=== PATIENT | female | born 1960 | race Caucasian/White ===

== ENCOUNTER → 2016-12-20 | Outpatient (CLI) | payer OTHER ==
--- NOTE | 2016-12-23 10:02 | MM ---
Reason for exam: screening (asymptomatic). Last mammogram was performed 1 year and 6 months ago. History: Family history of breast cancer in maternal grandmother. Benign core biopsy of the left breast, 2002. Physical Findings: A clinical breast exam by your physician is recommended on an annual basis and results should be correlated with mammographic findings. MG 3D Screening Mammo W/Cad Bilateral CC and MLO view(s) were taken. Prior study comparison: June 29, 2015, bilateral MG screening mammo w CAD. April 02, 2011, [facility] DIGITAL RIGHT MAMMOGRAM w/CAD. Finding: There are typically benign round calcifications. There is no discrete abnormality. No significant changes in finding since June 29, 2015 and April 02, 2011. ASSESSMENT: Benign, BI-RAD 2 RECOMMENDATION: Routine screening mammogram of both breasts in 1 year. Manage patient on a clinical basis.
== END | disposition home or self-care (01) ==
LOC: RADMAMWWP 07:03
PROVIDERS: ATTEND Internal Medicine
DX: Z12.31 Encounter for screening mammogram for malignant neoplasm of breast (principal)
CPT/HCPCS: 77063; G0202

== ENCOUNTER 2017-01-06 10:30 | Observation (INO) | payer OTHER, SELFPAY ==
[2017-01-06] MEDS ORDERED: MORPHINE SULFATE 2 MG/ML SYRINGE IVP STA (11:04)
[2017-01-06] MEDS ORDERED: ASPIRIN 81 MG CHEW PO STA (11:04)
[2017-01-06] MEDS ORDERED: SODIUM CHLORIDE 0.9% 1,000 ML IV STA (11:04)
[2017-01-06] MEDS ORDERED: ONDANSETRON 4 MG/2 ML VIAL IVP STA (11:04)
[2017-01-06] MEDS ORDERED: NITROGLYCERIN OINT 1 INCH/GM PACKET TOPICAL STA (11:04)
[2017-01-06 11:35] LABS: Partial Thromboplastin Time 24.4 sec (22.0-30.0); Prothrombin Time 10.1 sec (9.0-12.0)
[2017-01-06 11:37] LABS: ALT 49 U/L (9-52); AST 30 U/L (14-36); Alkaline Phosphatase 96 U/L (38-126); Anion Gap 12 mmol/L; Blood Urea Nitrogen 14 mg/dL (7-17); Calcium 9.4 mg/dL (8.4-10.2); Carbon Dioxide 26 mmol/L (22-30); Chloride 106 mmol/L (98-107); Glucose 91 mg/dL (74-99); Magnesium 2.1 mg/dL (1.6-2.3); Non-African American GFR(MDRD) >60 (>60 ml/min/1.73 sqM); Sodium 144 mmol/L (137-145); Total Bilirubin 0.9 mg/dL (0.2-1.3); Total Protein 7.7 g/dL (6.3-8.2)
[2017-01-06 11:39] LABS: Basophils % (A) 0 %; CH 30.9; CHCM 34.5; Eosinophils # (A) 0.1 k/uL (0-0.7); Eosinophils % (A) 1 %; HCT 44.8 % (34.0-46.0); HDW 2.61; Luc # (Auto) 0.07; Luc % (Auto) 1; Lymphocytes # (A) 1.6 k/uL (1.0-4.8); Lymphocytes % (A) 23 %; MCHC 33.4 g/dL (31.0-37.0); MCV 89.8 fL (80.0-100.0); Mean Platelet Volume 7.1; Monocytes # (A) 0.2 k/uL (0-1.0); Monocytes % (A) 3 %; Neutrophils % (A) 71 %; RBC 4.99 m/uL (3.80-5.40); RDW 13.5 % (11.5-15.5); WBC (Perox) 7.12
--- NOTE | 2017-01-06 11:43 | XR ---
EXAMINATION TYPE: XR chest 2V DATE OF EXAM: 01/06/2017 11:30 AM HISTORY: Chest pain. REFERENCE: Previous study dated 04/18/2011. FINDINGS: The lungs are clear. Pleural spaces are clear. Heart size is normal. IMPRESSION: NORMAL CHEST.
[2017-01-06 11:50] LABS: Creatine Kinase 53 U/L (30-135)
[2017-01-06 12:03] LABS: Creatine Kinase MB 0.3 ng/mL (0.0-2.4); Troponin I <0.012 ng/mL (0.000-0.034)
--- NOTE | 2017-01-06 13:17 | ED ---
Chest Pain HPI - General Chief Complaint: Chest Pain Stated Complaint: chest pain Time Seen by Provider: 01/06/17 10:44 Source: patient Mode of arrival: ambulatory Limitations: no limitations - History of Present Illness Initial Comments: Left-sided chest pain off and on for last 10 days and sometimes he has his pain addressed at some time with the exception she had the same kind of pain in the past but this time it's more severe and more frequent time she is short-winded pain right now is a 5-6/10 deep breaths do not make pain worse she denies any tobacco use no alcohol use, her dad has a history of diabetes and heart disease mom's past medical history is unremarkable he denies any headaches or migraine has a chest pain off and on for last few days abdominal pain no frequency urgency dysuria no sinus symptoms of TIA or CVA - Related Data Home Medications Medication Instructions Recorded Confirmed Ascorbic Acid [Vitamin C] 500 mg PO DAILY 01/06/17 01/06/17 Aspirin 81 mg PO DAILY 01/06/17 01/06/17 Calcium Carbonate [Calcium] 600 mg PO DAILY 01/06/17 01/06/17 Magnesium 200 mg PO DAILY 01/06/17 01/06/17 [place]-3 Fatty Acids/Fish Oil [Fish 1 cap PO DAILY 01/06/17 01/06/17 Oil 1,000 mg Softgel] Zinc 50 mg PO DAILY 01/06/17 01/06/17 Allergies Allergy/AdvReac Type Severity Reaction Status Date / Time No Known Allergies Allergy Verified 01/06/17 11:11 Review of Systems ROS Statement: Those systems with pertinent positive or pertinent negative responses have been documented in the HPI. ROS Other: All systems not noted in ROS Statement are negative. EKG Findings - EKG Comments: EKG Findings:: Him EKG is normal sinus rhythm ventricular rate is 61 MT interval is 150 QRS duration is 78 QT/QTc is 418/420 noticed some T-wave inversion in leads free apart from that no ST elevation or ST depression noticed and the EKG was compared with the old EKG done on 06/07/2011 there were no changes Past Medical History Past Medical History: No Reported History History of Any Multi-Drug Resistant Organisms: None Reported Past Surgical History: Hysterectomy Additional Past Surgical History / Comment(s): D & C Past Psychological History: No Psychological Hx Reported Smoking Status: Never smoker Past Alcohol Use History: None Reported Past Drug Use History: None Reported General Exam - General Exam Comments Initial Comments: General: The patient is awake and alert, in no distress, and does not appear acutely ill. Skin: Skin is warm and dry and no rashes or lesions are noted. Eye: Pupils are equal, round and reactive to light, extra-ocular movements are intact; there is normal conjunctiva bilaterally. Ears, nose, mouth and throat: There are moist mucous membranes and no oral lesions. Neck: The neck is supple, there is no tenderness or JVD. Cardiovascular: There is a regular rate and rhythm. No murmur, rub or gallop is appreciated. Respiratory: To auscultation bilateral, no wheezing no rhonchi no distress respiratory alvarez noticed Gastrointestinal: Soft, non-distended, non-tender abdomen without masses or organomegaly noted. There is no rebound or guarding present. Bowel sounds are unremarkable. Back: There is no tenderness to palpation in the midline. There is no obvious deformity. Musculoskeletal: Normal ROM, no tenderness, There is no pedal edema. There is no calf tenderness or swelling. No cords were appreciated. Neurological: CN II-XII intact, Cranial nerves III through XII are intact. There are no obvious motor or sensory deficits. Coordination appears grossly intact. Speech is normal. Psychiatric: Cooperative, appropriate mood & affect, normal judgment. Limitations: no limitations Course Vital Signs 01/06/17 01/06/17 01/06/17 10:36 11:19 12:00 Temperature 97.9 F Pulse Rate 61 61 63 Respiratory 18 20 Rate Blood Pressure 130/68 140/82 131/92 O2 Sat by Pulse 96 99 99 Oximetry Critical Care Time Total Critical Care Time: 35 Critical Care Time: She was monitored in the ER for couple of hours at 1330 she still has a pain is 3/10 at this point we can give her some morphine nitro en route and heparinize her she be admitted under Dr. Fish and cardiology be consulted at this point we hadn't had any d-dimer go ahead and at the d-dimer Disposition Clinical Impression: Chest pain Disposition: ADMITTED IP TO THIS HOSP Condition: Good
[2017-01-06] MEDS ORDERED: HEPARIN SODIUM,PORCINE 5,000 UNIT/ML 1 ML VIAL IV ONE (13:58)
[2017-01-06] MEDS ORDERED: NITROGLYCERIN SL TABS 0.4 MG TAB SUBLINGUAL PRN (13:58)
[2017-01-06] MEDS ORDERED: HEPARIN SODIUM,PORCINE/D5W PMX 25,000 UNIT in DEXTROSE/WATER 1 500ML.BAG IV SCH (14:00)
[2017-01-06 16:15] VITALS: BMI 33.1
[2017-01-06 17:40] LABS: Creatine Kinase 44 U/L (30-135)
[2017-01-06 17:53] LABS: Creatine Kinase MB 0.3 ng/mL (0.0-2.4); Troponin I <0.012 ng/mL (0.000-0.034)
[2017-01-06] MEDS ORDERED: ACETAMINOPHEN TAB 325 MG TAB PO PRN (20:05)
[2017-01-06 22:25] LABS: Creatine Kinase 44 U/L (30-135)
[2017-01-06 22:38] LABS: Creatine Kinase MB 0.3 ng/mL (0.0-2.4); Troponin I <0.012 ng/mL (0.000-0.034)
[2017-01-07 06:37] LABS: Cholesterol 166 mg/dL (<200); HDL Cholesterol 32 mg/dL (40-60); Triglycerides 134 mg/dL (<150)
[2017-01-07] MEDS ORDERED: ZINC GLUCONATE 50 MG TAB PO SCH (09:00)
[2017-01-07] MEDS ORDERED: CALCIUM CARBONATE 500 MG CHEWABLE PO SCH (09:00)
[2017-01-07] MEDS ORDERED: NON-FORMULARY DRUG (Omega-3 Fatty Acids/Fish Oil [Fish Oil 1,000 Mg Softgel] 1 CAP) PO SCH (09:00)
[2017-01-07] MEDS ORDERED: ASPIRIN 325 MG TAB PO SCH (09:00)
[2017-01-07] MEDS ORDERED: ASCORBIC ACID 500 MG TAB PO SCH (09:00)
[2017-01-07] MEDS ORDERED: MAGNESIUM OXIDE 400 MG TAB PO SCH (09:00)
--- NOTE | 2017-01-07 10:59 | ECHOF ---
Referral Reason:cp MEASUREMENTS -------- HEIGHT: 154.9 cm WEIGHT: 79.4 kg BP: 98/56 RVIDd: 3.0 cm (< 3.3) IVSd: 1.2 cm (0.6 - 1.1) LVIDd: 3.7 cm (3.9 - 5.3) LVPWd: 1.1 cm (0.6 - 1.1) IVSs: 1.4 cm LVIDs: 2.6 cm LVPWs: 1.5 cm LA Diam: 3.4 cm (2.7 - 3.8) Ao Diam: 3.1 cm (2.0 - 3.7) AV Cusp: 2.0 cm (1.5 - 2.6) MV EXCURSION: 11.540 mm (> 18.000) MV EF SLOPE: 80 mm/s (70 - 150) EPSS: 0.3 cm MV E [place]: 0.95 m/s MV DecT: 230 ms MV A [place]: 0.85 m/s MV E/A Ratio: 1.12 RAP: 5.00 mmHg RVSP: 30.43 mmHg FINDINGS -------- Sinus rhythm. This was a technically good study. The left ventricular size is normal. There is borderline concentric left ventricular hypertrophy. Overall left ventricular systolic function is normal with, an EF between 60 - 65 %. The right ventricle is normal in size and function. The left atrium is normal in size. The right atrium is normal in size. Aortic valve is trileaflet and is mildly thickened. Normal appearing mitral valve. No mitral regurgitation. Mild tricuspid regurgitation present. Right ventricular systolic pressure is normal at < 35 mmHg. The pulmonic valve is normal. There is no pulmonic regurgitation present. The aortic root size is normal. Normal inferior vena cava with normal inspiratory collapse consistent with estimated right atrial pressure of 5 mmHg. There is no pericardial effusion. CONCLUSIONS -------- 1. Sinus rhythm. 2. Normal appearing mitral valve. 3. Mild tricuspid regurgitation present. 4. Right ventricular systolic pressure is normal at < 35 mmHg. 5. The pulmonic valve is normal. 6. The aortic root size is normal. 7. There is no pericardial effusion. 8. This was a technically good study. 9. The left ventricular size is normal. 10. There is borderline concentric left ventricular hypertrophy. 11. Overall left ventricular systolic function is normal with, an EF between 60 - 65 %. 12. The right ventricle is normal in size and function. 13. The left atrium is normal in size. 14. The right atrium is normal in size. 15. Aortic valve is trileaflet and is mildly thickened. MEDICAL RADIATION THERAPIST: Damaris Andino RDCS
--- NOTE | 2017-01-07 11:08 | EST ---
DATE OF SERVICE: 01/07/2017 AGE: 56Y SEX: F HT: 61" WT: 175 lbs. Protocol Evin: X Other: Cardiolite Stage: III Dur. of Exercise: 7 minutes *Heart Rate Blood Pressure *Rest: 79 Rest: 124/73 * *Max. Achieved: 155 Maximum BP: 208/101 85% PMHR: 139 100% PMHR: 163 *METS: 8.5 INDICATION OF THE STUDY: Chest pain. MEDICATIONS: Vitamin C, aspirin, Zinc, fish oil, magnesium, calcium. STRESS DATA: Pretesting physical examination showed heart rate of 79, pressure is 124/73 mmHg. Baseline EKG showed sinus rhythm. The patient exercised on the treadmill according to Evin protocol for a total 7 minutes and achieved 8.5 METs. Max heart rate was 155, which is about 111% of maximum predicted heart rate. Maximum blood pressure 208/101 mmHg. Clinically, the patient reported no symptoms of chest pain or discomfort during the testing or in the recovery time. The EKG did not show any significant ST or T wave abnormalities consistent with ischemia. CONCLUSION: 1. Good exercise capacity. 2. Normal EKG in response to exercise. 3. Please follow up on the Cardiolite portion on a separate report from the radiology department.
--- NOTE | 2017-01-07 11:18 | NM ---
EXAMINATION TYPE: NM stress cardiolite complete DATE OF EXAM: 01/07/2017 11:08 AM COMPARISON: NONE HISTORY: Chest pain TECHNIQUE: After the intravenous administration of 11 mCi Tc 99m Sestamibi - Rest images obtained 62 minutes post injection. The patient exercised using a MARIAA protocol and 1 minute prior to peak ex ercise was injected with 27.5 mCi Tc 99m Sestamibi - Stress images obtained 20 minutes post injection . FINDINGS: Targeted heart rate was achieved during performance of the study. Review of stress and rest SPECT wander ges demonstrates no distinct perfusion abnormality. Gated analysis shows normal wall motion with an estimated left ventricular ejection fraction of 67 %. IMPRESSION: No scintigraphic evidence for reversible ischemia
[2017-01-07 12:11] VITALS: BP 135/74; PULSE 70; RESP 18; TEMP 97.8
--- NOTE | 2017-01-07 12:22 | CONS ---
DATE OF CONSULTATION: CHIEF COMPLAINT: Chest pain. Reny is a 56-year-old lady with no significant past medical history who presented to the hospital complaining of chest pain. She describes it as a precordial chest pressure with left arm discomfort. It came on as a tightness at rest and associated with diaphoresis, unrelated to exertion. There was no shortness of breath. It resolved spontaneously. EKG did not reveal ischemic changes. Three sets of cardiac enzymes this morning have been negative. There is no prior history of coronary artery disease. There is no prior history of revascularization. I reviewed patient's symptomatology, risk factors, EKG and talked to her about her treatment options including invasive angiography to rule out obstructive CAD and stress testing. Understanding all of the issues, she wishes to proceed with a stress test today. If this is normal, she will be discharged home. If this is abnormal, she will undergo cardiac catheterization. Past medical history is negative for hypertension, diabetes, dyslipidemia. MEDICATIONS: Zinc, fish oil, magnesium, ascorbic acid and aspirin. ALLERGIES: There are no known drug allergies. FAMILY HISTORY: Negative for premature coronary artery disease. SOCIAL HISTORY: Negative for smoking, EtOH abuse, or drug abuse. REVIEW OF SYSTEMS: HEENT: Unremarkable. CARDIAC: As described above. RESPIRATORY: Negative. GI: Negative. GENITOURINARY: Negative. ALLERGY/IMMUNOLOGY: Negative. SKIN: Negative. MUSCULOSKELETAL: Negative. ENDOCRINE: Negative. HEMATOLOGICAL: Negative. DERM: Negative. CONSTITUTIONAL: Negative. ONCOLOGICAL: Negative. The rest of the system review is not relevant. On exam, patient is comfortable at rest. Heart rate is 50 beats per minute. Blood pressure 98/50. Respiratory rate 18. There is no jugular venous distention. Carotid upstroke is normal. There is no bruit. Chest exam reveals good air entry bilaterally. Heart exam reveals first and second heart sounds. No gallop. No murmur, no rub. Abdomen is soft, nontender. Exam of the extremities did not reveal any edema. Peripheral pulses are felt. DESCRIPTIVE CATALOG LIBRARIAN exam did not reveal focal neurological deficits. Labs show that the hemoglobin is 15, platelet count is 233. Three sets of tropes are negative. Creatinine is normal. LDL is 107. ASSESSMENT: Unstable angina. PLAN: While patient's symptoms sound typical, EKG is normal. Cardiac enzymes are normal. She does not have any significant risk factors and as per her, request, we will schedule her for a stress test today. If the stress test is negative, she will be discharged home. If this is abnormal she will undergo cardiac catheterization.
--- NOTE | 2017-01-07 12:59 | P.HPIM ---
History of Present Illness H&P Date: 01/07/17 Chief Complaint: Chest pain This is a 56-year-old female with no significant past medical history who presented to the emergency room with worsening chest pain and tightness. Patient said that her pain was mostly tightness-like feeling in the middle of her chest. He was associated with diaphoresis. There was no radiation. There is unrelated to exertion. Patient never had any problems with her heart before. She is a nonsmoker. No significant family history of premature coronary artery disease. Patient was evaluated in the emergency room and 12 leads EKG showed no acute ischemic changes. She was placed on observation for further evaluation with cardiology consultation. Serial troponin were negative 3 sets. Patient underwent stress test that was negative with no evidence of reversible ischemia. She was cleared for discharge home. She will follow-up with me in the office as directed. Review of Systems Review of system: 14 points review of systems were obtained and were negative except to what were mentioned in the HPI. Past Medical History Past Medical History: No Reported History Additional Past Medical History / Comment(s): PALPITATIONS History of Any Multi-Drug Resistant Organisms: None Reported Past Surgical History: Hernia Repair, Hysterectomy Additional Past Surgical History / Comment(s): D & C, RT BREAST BX -NEG, UMB HERNIA Past Anesthesia/Blood Transfusion Reactions: Previous Problems w/ Anesthesia Additional Past Anesthesia/Blood Transfusion Reaction / Comment(s): DIFFICULTY WAKING Past Psychological History: No Psychological Hx Reported Smoking Status: Never smoker Past Alcohol Use History: None Reported Past Drug Use History: None Reported - Past Family History Mother Family Medical History: Dementia Father Family Medical History: Congestive Heart Failure (CHF), Diabetes Mellitus Medications and Allergies Home Medications Medication Instructions Recorded Confirmed Type Ascorbic Acid [Vitamin C] 500 mg PO DAILY 01/06/17 01/06/17 History Aspirin 81 mg PO DAILY 01/06/17 01/06/17 History Calcium Carbonate [Calcium] 600 mg PO DAILY 01/06/17 01/06/17 History Magnesium 200 mg PO DAILY 01/06/17 01/06/17 History [place]-3 Fatty Acids/Fish Oil [Fish 1 cap PO DAILY 01/06/17 01/06/17 History Oil 1,000 mg Softgel] Zinc 50 mg PO DAILY 01/06/17 01/06/17 History Allergies Allergy/AdvReac Type Severity Reaction Status Date / Time No Known Allergies Allergy Verified 01/06/17 11:11 Physical Exam Vitals: Vital Signs Temp Pulse Pulse Resp BP BP BP 01/07/17 12:00 97.8 F 70 18 135/74 01/07/17 08:00 97.9 F 50 L 16 98/56 01/07/17 03:43 16 01/07/17 03:31 52 L 16 135/65 01/07/17 00:00 50 L 16 96/46 01/06/17 20:00 98 F 57 L 18 121/75 01/06/17 15:30 97.6 F 65 18 136/76 Pulse Ox 01/07/17 12:00 96 01/07/17 08:00 99 01/07/17 03:43 01/07/17 03:31 95 01/07/17 00:00 94 L 01/06/17 20:00 99 01/06/17 15:30 97 Intake and Output 01/06/17 01/07/17 01/07/17 22:59 06:59 14:59 Intake Total 200 153.129 Balance 200 153.129 Intake: Intake, IV Titration 153.129 Amount Heparin Sodium,Porcine/ 153.129 D5w Pmx 25,000 unit In Dextrose/Water 1 500ml. bag @ 12 UNITS/KG/HR 19. 59 mls/hr IV .Q24H [facility] Rx #:[id number] Oral 200 Other: Voiding Method Toilet # Voids 1 1 Weight 79.5 kg General: The patient is awake and alert, in no distress, and does not appear acutely ill. Eye: extra-ocular movements are intact; there is normal conjunctiva bilaterally. . Neck: The neck is supple, there is no tenderness or JVD. Cardiovascular: Normal S1-S2, no S3-S4, no murmurs. Respiratory: Lungs clear to auscultation bilaterally with no wheezes rhonchi or rales. Gastrointestinal: Abdomen is soft, nontender, nondistended, with no organomegaly. . Musculoskeletal: Normal ROM, no tenderness, There is no pedal edema. Neurological: There are no obvious motor or sensory deficits. Speech is normal. Skin: Skin is warm and dry and no rashes or lesions are noted. Results CBC & Chem 7: 01/06/17 11:10 01/06/17 11:10 Labs: Abnormal Lab Results - Last 24 Hours (Table) 01/06/17 01/07/17 01/07/17 Range/Units 21:47 05:24 05:24 APTT 44.5 H 50.9 H (22.0-30.0) sec LDL Cholesterol, Calc 107 H (0-99) mg/dL HDL Cholesterol 32 L (40-60) mg/dL Assessment and Plan Plan: This is a 56-year-old female with no significant past medical history who presented to the emergency room with worsening chest pain and tightness. Patient said that her pain was mostly tightness-like feeling in the middle of her chest. He was associated with diaphoresis. There was no radiation. There is unrelated to exertion. Patient never had any problems with her heart before. She is a nonsmoker. No significant family history of premature coronary artery disease. Patient was evaluated in the emergency room and 12 leads EKG showed no acute ischemic changes. She was placed on observation for further evaluation with cardiology consultation. Serial troponin were negative 3 sets. Patient underwent stress test that was negative with no evidence of reversible ischemia. She was cleared for discharge home. She will follow-up with me in the office as directed.
--- NOTE | 2017-01-07 13:00 | P.DS ---
Providers Date of admission: 01/06/17 13:58 Expected date of discharge: 01/07/17 Attending physician: Topher Fish Primary care physician: Topher Fish [facility] Course: This is a 56-year-old female with no significant past medical history who presented to the emergency room with worsening chest pain and tightness. Patient said that her pain was mostly tightness-like feeling in the middle of her chest. He was associated with diaphoresis. There was no radiation. There is unrelated to exertion. Patient never had any problems with her heart before. She is a nonsmoker. No significant family history of premature coronary artery disease. Patient was evaluated in the emergency room and 12 leads EKG showed no acute ischemic changes. She was placed on observation for further evaluation with cardiology consultation. Serial troponin were negative 3 sets. Patient underwent stress test that was negative with no evidence of reversible ischemia. She was cleared for discharge home. She will follow-up with me in the office as directed. Patient Condition at Discharge: Good Plan - Discharge Summary Discharge Medication List Ascorbic Acid [Vitamin C] 500 mg PO DAILY 01/06/17 [History] Aspirin 81 mg PO DAILY 01/06/17 [History] Calcium Carbonate [Calcium] 600 mg PO DAILY 01/06/17 [History] Magnesium 200 mg PO DAILY 01/06/17 [History] [place]-3 Fatty Acids/Fish Oil [Fish Oil 1,000 mg Softgel] 1 cap PO DAILY [History] Zinc 50 mg PO DAILY 01/06/17 [History] Follow up Appointment(s)/Referral(s): Topher Fish MD [Primary Care Provider] - 1 Week
== END 2017-01-07 13:40 | disposition home or self-care (01) ==
LOC: EC 10:30 → 3OBS 13:58
PROVIDERS: ADMIT Internal Medicine; ATTEND Internal Medicine
DX: I20.0 Unstable angina (principal); R61 Generalized hyperhidrosis; Z79.82 Long term (current) use of aspirin; Z82.49 Family history of ischemic heart disease and other diseases of the circulatory system; Z79.899 Other long term (current) drug therapy
CPT/HCPCS: 36415; 93005; 93017; 93306; 85379; 80061; 80053; 82550; 82553; 83735; 84484; 85025; 85610; 85730 ×2; 71020; 78452; 99291; 96375 ×2; 96376; 96361; G0378 ×2; A9500; J1644 ×2; J2405; J2270; 96365; 96366

== ENCOUNTER → 2018-05-05 | Outpatient (CLI) | payer BC, OTHER ==
--- NOTE | 2018-05-06 07:27 | MM ---
Reason for exam: screening (asymptomatic). Last mammogram was performed 1 year and 5 months ago. History: Family history of breast cancer in maternal grandmother. Benign core biopsy of the left breast, 2002. Physical Findings: A clinical breast exam by your physician is recommended on an annual basis and results should be correlated with mammographic findings. MG Screening Mammo w CAD Bilateral CC and MLO view(s) were taken. Prior study comparison: December 20, 2016, bilateral MG 3d screening mammo w/cad. June 29, 2015, bilateral MG screening mammo w CAD. There are scattered fibroglandular densities. Benign appearing bilateral calcifications. No suspicious abnormality. Left biopsy marker noted adjacent to a biopsied mammographic focal asymmetry. ASSESSMENT: Benign, BI-RAD 2 RECOMMENDATION: Routine screening mammogram of both breasts in 1 year.
== END | disposition home or self-care (01) ==
LOC: RADMAMWWP 07:24
PROVIDERS: ATTEND Internal Medicine
DX: Z12.31 Encounter for screening mammogram for malignant neoplasm of breast (principal)
CPT/HCPCS: 77067

== ENCOUNTER → 2019-05-26 | Outpatient (CLI) | payer BC ==
--- NOTE | 2019-05-31 08:18 | MM ---
Reason for exam: screening (asymptomatic). Last mammogram was performed 1 year and 1 month ago. History: Family history of breast cancer in maternal grandmother. Benign core biopsy of the left breast, 2002. Physical Findings: A clinical breast exam by your physician is recommended on an annual basis and results should be correlated with mammographic findings. MG Screening Mammo w CAD Bilateral CC and MLO view(s) were taken. XCCL view(s) were taken of the right breast. Prior study comparison: May 05, 2018, bilateral MG screening mammo w CAD. December 20, 2016, bilateral MG 3d screening mammo w/cad. The breast tissue is heterogeneously dense. This may lower the sensitivity of mammography. Benign appearing bilateral calcifications. No suspicious abnormality. Left biopsy marker noted. No significant new findings when compared with previous films. These results were verbally communicated with the patient and result sheet given to the patient on 05/26/19. ASSESSMENT: Benign, BI-RAD 2 RECOMMENDATION: Routine screening mammogram of both breasts in 1 year.
== END | disposition home or self-care (01) ==
LOC: RADMAMWWP 09:25
PROVIDERS: ATTEND Family Medicine
DX: Z12.31 Encounter for screening mammogram for malignant neoplasm of breast (principal)
CPT/HCPCS: 77067

== ENCOUNTER → 2019-05-31 | Outpatient (CLI) | payer BC ==
--- NOTE | 2019-05-31 23:33 | BD ---
EXAMINATION TYPE: Axial Bone Density DATE OF EXAM: 05/31/2019 COMPARISON: 2010 CLINICAL HISTORY: 58-year-old female post menopausal screening Height: 5'1 1/2 Weight: 178 FRAX RISK QUESTIONS: Family History (Parent hip fracture): y History of Fracture in Adulthood: y Secondary Osteoporosis: RISK FACTORS HISTORY OF: Postmenopausal woman: y MEDICATIONS: Additional Medications: Additional History: EXAM MEASUREMENTS: Bone mineral densitometry was performed using the [email or web address] System. Bone mineral density as measured about the Lumbar spine is: ----- L1-L4(G/cm2): 0.837 T Score Values are as follows: ----- L2: -3.2 ----- L3: -2.6 ----- L4: -2.6 ----- L1-L4: -2.9 Bone mineral density has: Decreased -10.2% since study of: 03/29/2011 Bone mineral density about the R hip (g/cm2): 0.782 Bone mineral density about the L hip (g/cm2): 0.739 T Score values are as follows: -----R Neck: -1.8 -----L Neck: -2.2 -----R Total: -1.2 -----L Total: -1.1 Bone mineral density has: Decreased -2.3% since study of: 03/29/2011 IMPRESSION: Osteoporosis (T Score less than -2.5). There is increased fracture risk and therapy is usually indicated based on age. Re-Screen 1-2 years. NOTE: T-SCORE=SD OF THE YOUNG ADULT MEAN.
== END | disposition home or self-care (01) ==
LOC: RADBDWWP 07:30
PROVIDERS: ATTEND Family Medicine
DX: M81.0 Age-related osteoporosis without current pathological fracture (principal)
CPT/HCPCS: 77080

== ENCOUNTER → 2022-08-23 | Outpatient (CLI) | payer OTHER ==
--- NOTE | 2022-08-23 08:10 | BD ---
EXAMINATION TYPE: Axial Bone Density DATE OF EXAM: 08/23/2022 COMPARISON: 06.01.2019 PREVIOUS UNAVAILABLE CLINICAL HISTORY: 62 years year old Female. ICD-10 CODE: M89.9 Disorder of bone Height: 60.5 IN Weight: 173 FRAX RISK QUESTIONS: Family History (Parent hip fracture): YES History of Fracture in Adulthood: YES Secondary Osteoporosis: RISK FACTORS HISTORY OF: Active: YES Postmenopausal woman: YES MEDICATIONS: Additional Medications: CALCIUM Additional History: EXAM MEASUREMENTS: Bone mineral densitometry was performed using the [employer] System. Bone mineral density as measured about the Lumbar spine is: ----- L1-L4(G/cm2): 0.820 T Score Values are as follows: ----- L1: -3.7 ----- L2: -3.0 ----- L3: -3.2 ----- L4: -2.4 ----- L1-L4: -3.0 Bone mineral density has: Decreased -11.7% since study of: 03-29-2011 PREVIOUS 06-01-2019 UNAVAILABLE Bone mineral density about the R hip (g/cm2): 0.860 Bone mineral density about the L hip (g/cm2): 0.848 T Score values are as follows: -----R Neck: -1.7 -----L Neck: -2.3 -----R Total: -1.2 -----L Total: -1.3 Bone mineral density has: Decreased -2.7% since study of: 03-29-2011 FRAX%s: The graph provided illustrates a 19.7% chance for a major osteoporotic fx and a 1.9% chance f or the hips probability for fx in 10 years time. IMPRESSION: Osteoporosis (T Score less than -2.5). There is increased fracture risk and therapy is usually indicated based on age. Re-Screen 1-2 years. NOTE: T-SCORE=SD OF THE YOUNG ADULT MEAN.
--- NOTE | 2022-08-26 07:49 | MM ---
Reason for Exam: Screening (asymptomatic). Last mammogram was performed 3 year(s) and 2 month(s) ago. Patient History: Menarche at age 12. First Full-Term at age 18. Hysterectomy at age 34. 2002, Benign Core Biopsy on the left side. Maternal grandmother had breast cancer, age 65. Risk Values: Elle 5 year model risk: 1.3%. NCI Lifetime model risk: 5.7%. Prior Study Comparison: 12/20/2016 Bilateral Screening Mammogram, [facility]. 05/05/2018 Bilateral Screening Mammogram, [facility]. 05/26/2019 Bilateral Screening Mammogram, [facility]. Tissue Density: There are scattered fibroglandular densities. Findings: Analyzed By CAD. There is no suspicious group of microcalcifications or new suspicious mass in either breast. Overall Assessment: Negative, BI-RAD 1 Management: Screening Mammogram of both breasts in 1 year. A clinical breast exam by your physician is recommended on an annual basis and results should be correlated with mammographic findings. [facility] will attempt to contact patient to return for supplemental views and ultrasound if indicated. Electronically signed and approved by: Tyrel Harrison DO
== END | disposition home or self-care (01) ==
LOC: RADMAMWWP 06:58
PROVIDERS: ATTEND Family Medicine
DX: Z12.31 Encounter for screening mammogram for malignant neoplasm of breast (principal); M81.0 Age-related osteoporosis without current pathological fracture; Z80.3 Family history of malignant neoplasm of breast
CPT/HCPCS: 77067; 77080

== ENCOUNTER 2022-10-11 12:41 | Day surgery (SDC) | payer BC, OTHER ==
[2022-10-11] MEDS: LACTATED RINGERS 1,000 ML IV SCH ×2 (13:28→15:08)
[2022-10-11 13:52] VITALS: RESP 16; TEMP 97
[2022-10-11] MEDS ORDERED: PROPOFOL 10 MG/ML 20 ML VIAL IV ONE (15:09)
[2022-10-11] MEDS ORDERED: LIDOCAINE 2% INJ 20 MG/ML (2 ML VIAL) ONE (15:09)
--- NOTE | 2022-10-11 15:34 | P.PCN ---
Date of Procedure: 10/11/22 Procedure(s) Performed: BRIEF HISTORY: Patient is a 62-year-old pleasant white female scheduled for an elective colonoscopy as a part of screening for colon cancer. PROCEDURE PERFORMED: Colonoscopywith biopsy. PREOPERATIVE DIAGNOSIS: Screening for colon cancer. IV sedation per Anesthesia. PROCEDURE: After informed consent was obtained, the patient, was brought into the endoscopy unit. IV sedation was administered by Anesthesia under continuous monitoring. Digital rectal examination was normal. Initially the Olympus CF-160 flexible video colonoscope was then inserted in the rectum, gradually advanced into the cecum without any difficulty. Careful examination was performed as the scope was gradually being withdrawn. Ileocecal valve and the appendiceal orifice were visualized and appeared normal. Prep was excellent. Mucosa of the cecum,adequately millimeters polyp that was removed by cold biopsy. In the ascending colon there was another 3 mm polyp that was removed by cold biopsy. Rest of the ascending colon, transverse colon, descending colon, sigmoid colon, and rectum appeared normal. Retroflexion was performed in the rectum and no lesions were seen. The patient tolerated the procedure well. IMPRESSION: 3 mm cecal polyp status post cold biopsy 3 mm ascending colon polypIt is post cold biopsy Rest of the colon appeared normal RECOMMENDATIONS: Findings of this examination were discussed with the patient as well as a family. She was advised tofollow with the biopsy results. If the biopsy result adenoma she can have a repeat coloscopy in 5 years..
[2022-10-11 15:57] VITALS: BP 124/70; PULSE 56
== END 2022-10-11 16:19 | disposition home or self-care (01) ==
LOC: ORWHC2ENDO 12:41
PROVIDERS: ATTEND Internal Medicine Gastroenterology
DX: Z12.11 Encounter for screening for malignant neoplasm of colon (principal); K63.5 Polyp of colon
CPT/HCPCS: 45380; J2704; J2001; 88305

== ENCOUNTER → 2023-02-07 | Outpatient (CLI) | payer OTHER ==
--- NOTE | 2023-02-07 08:18 | CT ---
EXAMINATION TYPE: CT brain wo con DATE OF EXAM: 02/07/2023 COMPARISON: 01/20/2023 HISTORY: 62-year-old female S06.329S, Contusion of left cerebrum w/loss of consciousness, sequela TECHNIQUE: Examination was done in axial plane without intravenous contrast. Coronal and sagittal r econstructions performed. CT DLP: 1201 mGycm Automated exposure control for dose reduction was used. FINDINGS: There is no evidence of acute intracranial hemorrhage, acute ischemic changes, mass, mass-effect, or extra-axial fluid collection. There is no effacement of cerebral sulci or basal subarachnoid cister ns. There is no hydrocephalus. There is no midline shift. Calixto-white matter distinction is preserv ed. There is incidental right-sided 4 mm of cerebellar tonsillar ectopia, unchanged. Paranasal sinuses and mastoid air cells well pneumatized. Rightward nasal septal deviation. Orbits an d globes are intact. IMPRESSION: No acute intracranial abnormality seen. Incidental chronic 4 mm of right-sided cerebellar tonsillar e ctopia. Likely benign cerebellar tonsillar ectopia. Correlate for any chronic headache symptoms.
== END | disposition home or self-care (01) ==
LOC: RADCTMAIN 06:37
PROVIDERS: ATTEND Family Medicine
DX: S06.32 Contusion and laceration of left cerebrum (principal); Q04.8 Other specified congenital malformations of brain
CPT/HCPCS: 70450

== ENCOUNTER → 2023-05-02 | Outpatient (CLI) | payer OTHER ==
--- NOTE | 2023-05-02 10:07 | MR ---
EXAMINATION TYPE: MR brain wo con DATE OF EXAM: 05/02/2023 7:08 AM COMPARISON: CT brain 02/07/2023. CLINICAL INDICATION:Female, 62 years old with history of Z87.820,Z87.898; PHH, Syncope, hx closed hea d injury. TECHNIQUE: Multi planar, multi sequence imaging was performed through the brain including: T1, T2, In version recovery, Diffusion weighted imaging, and gradient echo imaging. No gadolinium was given. FINDINGS: The cerebellar tonsils extend below the foramen magnum 3 mm. The salmeron-white junctions, ventricular system, and cisterns appear unremarkable. Scattered foci of hi gh T2 signal intensity are seen within the periventricular white matter. Midline structures show no a bnormality. Diffusion-weighted imaging shows no evidence of restricted diffusion. The susceptibility weighted images do not reveal any evidence for micro-hemorrhage. The bone marrow signal is within normal limits. Paranasal sinuses and mastoid air cells: No significant paranasal sinus disease. Visualized orbits: Orbital contents are intact. IMPRESSION: 1. No evidence of intracranial mass or acute/subacute infarct. 2. Nonspecific white matter changes, likely secondary to small vessel ischemic disease. 3. Cerebellar tonsillar ectopia.
== END | disposition home or self-care (01) ==
LOC: RADMRIMAIN 06:33
PROVIDERS: ATTEND Psychiatry & Neurology Neurology
DX: Q04.8 Other specified congenital malformations of brain (principal); Z87.820 Personal history of traumatic brain injury; Z87.898 Personal history of other specified conditions; Z87.828 Personal history of other (healed) physical injury and trauma
CPT/HCPCS: 70551

== ENCOUNTER → 2023-12-09 | Outpatient (CLI) | payer OTHER ==
--- NOTE | 2023-12-10 19:43 | MM ---
Reason for Exam: Screening (asymptomatic). Last mammogram was performed 1 year(s) and 4 month(s) ago. Patient History: Menarche at age 12. First Full-Term at age 18. Hysterectomy at age 34. 2002, Benign Core Biopsy on the left side. Maternal grandmother had breast cancer, age 65. Risk Values: Elle 5 year model risk: 0.9%. NCI Lifetime model risk: 3.8%. Prior Study Comparison: 05/05/2018 Bilateral Screening Mammogram, [facility]. 05/26/2019 Bilateral Screening Mammogram, [facility]. 08/23/2022 Bilateral MG screening mammo w CAD, [facility]. Tissue Density: There are scattered fibroglandular densities. Findings: Analyzed By CAD. Bilateral asymmetric densities remain unchanged. Microclip left breast from prior biopsy. Areas of fat necrosis calcifications on the right. There is no suspicious group of microcalcifications or new suspicious mass in either breast. Overall Assessment: Benign, BI-RAD 2 Management: Screening Mammogram of both breasts in 1 year. . Patient should continue monthly self-breast exams. A clinical breast exam by your physician is recommended on an annual basis. This exam should not preclude additional follow-up of suspicious palpable abnormalities. Note on Elle scores and lifetime risk: 1. A Elle score greater than 3% is considered moderate risk. If this is the case, consider specialist referral to assess eligibility for a risk reducing agent. 2. If overall lifetime risk for the development of breast cancer is 20% or higher, the patient may qualify for future screening with alternating mammogram and breast MRI. Electronically signed and approved by: Akin Gilbert M.D. Radiologist
== END | disposition home or self-care (01) ==
LOC: RADMAMWWP 07:49
PROVIDERS: ATTEND Family Medicine
DX: Z12.31 Encounter for screening mammogram for malignant neoplasm of breast (principal); Z80.3 Family history of malignant neoplasm of breast
CPT/HCPCS: 77067

== ENCOUNTER → 2024-12-15 | Outpatient (CLI) | payer MEDICARE ==
--- NOTE | 2024-12-15 17:43 | MM ---
Reason for Exam: Screening (asymptomatic). Last screening mammogram was performed 12 month(s) ago. Patient History: Menarche at age 12. First Full-Term at age 18. Hysterectomy at age 34. 2002, Benign Core Biopsy on the left side. Maternal grandmother had breast cancer, age 65. Risk Values: Elle 5 year model risk: 0.9%. NCI Lifetime model risk: 3.7%. Prior Study Comparison: 05/26/2019 Bilateral Screening Mammogram, [facility]. 08/23/2022 Bilateral MG screening mammo w CAD, [facility]. 12/09/2023 Bilateral MG screening mammo w CAD, [facility]. Tissue Density: There are scattered areas of fibroglandular density. Findings: Analyzed By CAD. Unchanged dystrophic calcifications on the right. Microclip left breast from prior biopsy. Areas of asymmetric density on the right are also unchanged. There is no suspicious group of microcalcifications or new suspicious mass in either breast. Overall Assessment: Benign, BI-RAD 2 Management: Screening Mammogram of both breasts in 1 year. Patient should continue monthly self-breast exams. A clinical breast exam by your physician is recommended on an annual basis. This exam should not preclude additional follow-up of suspicious palpable abnormalities. Note on Elle scores and lifetime risk: 1. A Elle score greater than 3% is considered moderate risk. If this is the case, consider specialist referral to assess eligibility for a risk reducing agent. 2. If overall lifetime risk for the development of breast cancer is 20% or higher, the patient may qualify for future screening with alternating mammogram and breast MRI. [facility], , 12/15/2024 5:41 PM. Electronically signed and approved by: Akin Gilbert M.D. Radiologist
== END | disposition home or self-care (01) ==
LOC: RADMAMWWP 15:59
PROVIDERS: ATTEND Family Medicine
DX: Z12.31 Encounter for screening mammogram for malignant neoplasm of breast (principal); Z80.3 Family history of malignant neoplasm of breast; R92.323 Mammographic fibroglandular density, bilateral breasts; Z98.82 Breast implant status
CPT/HCPCS: 77067

== ENCOUNTER → 2024-12-17 | Outpatient (CLI) | payer MEDICARE ==
[2024-12-17 21:13] LABS: ALT 20 U/L (8-44); AST 21 U/L (13-35); Albumin 4.5 g/dL (3.8-4.9); Albumin/Globulin Ratio 1.73 Ratio (1.60-3.17); Alkaline Phosphatase 117 U/L (41-126); Blood Urea Nitrogen 13.8 mg/dL (9.0-27.0); Calcium 9.3 mg/dL (8.7-10.3); Carbon Dioxide 28.5 mmol/L (21.6-31.8); Chloride 105 mmol/L (96-109); Chol/HDL Ratio 5.98 Ratio; Globulin 2.6 g/dL (1.6-3.3); Glucose 94 mg/dL (70-110); Potassium 4.1 mmol/L (3.5-5.5); Sodium 144 mmol/L (135-145); Total Bilirubin 0.4 mg/dL (0.3-1.2); Total Protein 7.1 g/dL (6.2-8.2)
[2024-12-17 21:54] LABS: Basophils # (A) 0.02 X 10*3/uL (0.00-0.10); Basophils % (A) 0.3 %; Eosinophils # (A) 0.08 X 10*3/uL (0.04-0.35); Eosinophils % (A) 1.1 %; HCT 46.5 % (37.2-46.3); HGB 15.4 g/dL (12.0-15.0); Lymphocytes # (A) 1.67 X 10*3/uL (0.90-5.00); Lymphocytes % (A) 22.6 %; MCH 29.7 pg (27.0-32.0); MCHC 33.1 g/dL (32.0-37.0); MCV 89.6 FL (80.0-97.0); Mean Platelet Volume 11.7 FL (9.5-12.2); Monocytes # (A) 0.36 X 10*3/uL (0.20-1.00); Monocytes % (A) 4.9 %; NRBC Per 100 WBC 0 X 10*3/uL (0.00-0.01); Neutrophils # (A) 5.25 X 10*3/uL (1.80-7.70); Neutrophils % (A) 70.8 %; Platelet Count 214 X 10*3/uL (140-440); RBC 5.19 X 10*6/uL (4.10-5.20); RDW 13.4 % (11.5-14.5)
== END | disposition home or self-care (01) ==
LOC: LABWHC1 14:32
PROVIDERS: ATTEND Family Medicine
DX: I12.9 Hypertensive chronic kidney disease with stage 1 through stage 4 chronic kidney disease, or unspecified chronic kidney disease (principal); R73.9 Hyperglycemia, unspecified; E55.9 Vitamin D deficiency, unspecified
CPT/HCPCS: 36415; 80053; 80061; 82306; 83036; 83721; 84443; 85025

== ENCOUNTER → 2025-02-24 | Outpatient (CLI) | payer MEDICARE ==
--- NOTE | 2025-02-25 11:57 | CA ---
Transthoracic Echo Report Name: Reny Dodson Age: 64 Gender: F : 1960 Exam Date: 02/24/2025 16:04 Exam Location: [place] [facility] Ht (in): 61 Wt (lb): 168 Ordering Physician: Tonny Lubin MD Attending/Referring Phys: Safia Starks [facility] [employer] Occupational Therapist Isabelle Freitas RDCS Procedure CPT: Indications: R00.2 palpitations Cardiac Hx: Technical Quality: Good Contrast 1: Total Dose (mL): Contrast 2: Total Dose (mL): MEASUREMENTS (Male / Female) Normal Values 2D ECHO LV Diastolic Diameter PLAX 3.9 cm 4.2 - 5.9 / 3.9 - 5.3 cm LV Systolic Diameter PLAX 2.4 cm IVS Diastolic Thickness 1.3 cm 0.6 - 1.0 / 0.6 - 0.9 cm LVPW Diastolic Thickness 1.2 cm 0.6 - 1.0 / 0.6 - 0.9 cm LV Relative Wall Thickness 0.7 RV Internal Dim ED PLAX 3.4 cm LA Systolic Diameter LX 3.4 cm 3.0 - 4.0 / 2.7 - 3.8 cm LV Diastolic Volume MOD 4C 91.2 cm??? LV Systolic Volume MOD 4C 39.5 cm??? LV Ejection Fraction MOD 4C 56.7 % LV Cardiac Index MOD 4C 1796.8 cm???/min???m??? LV Diastolic Length 4C 7.9 cm LV Systolic Length 4C 6.3 cm LV Diastolic Volume MOD 2C 68.3 cm??? LV Systolic Volume MOD 2C 24.8 cm??? LV Ejection Fraction MOD 2C 63.7 % LV Cardiac Index MOD 2C 1512.9 cm???/min???m??? LV Diastolic Length 2C 7.1 cm LV Systolic Length 2C 5.7 cm LA Volume 40.3 cm??? 18 - 58 / 22 - 52 cm??? LA Volume Index 21.9 cm???/m??? 16 - 28 cm???/m??? M-MODE Aortic Root Diameter MM 3.2 cm DOPPLER AV Peak Velocity 158.7 cm/s AV Peak Gradient 10.1 mmHg MV Area PHT 2.4 cm??? Mitral E Point Velocity 73.9 cm/s Mitral A Point Velocity 105.7 cm/s Mitral E to A Ratio 0.7 MV Deceleration Time 314.1 ms TR Peak Velocity 254.8 cm/s TR Peak Gradient 26.0 mmHg Right Ventricular Systolic Press 30.9 mmHg FINDINGS Left Ventricle Left ventricular ejection fraction is estimated at 55-60 %. Left ventricular cavity size normal. Mildly increased septal wall thickness. Mildly increased posterior wall thickness. Normal left ventricular wall motion. Right Ventricle Mild right ventricular dilatation. Right ventricular systolic pressure within normal limits. Right Atrium Normal right atrial size. No right atrial thrombus or mass seen. Left Atrium Normal left atrial size. No left atrial thrombus or mass present. Mitral Valve Structurally normal mitral valve. No mitral stenosis, regurgitation or prolapse. Aortic Valve Trileaflet aortic valve. No aortic valve stenosis or regurgitation. Tricuspid Valve Structurally normal tricuspid valve. Mild tricuspid regurgitation. Pulmonic Valve Structurally normal pulmonic valve. Trace pulmonic regurgitation. Pericardium No pericardial effusion. Aorta Normal size aortic root and proximal ascending aorta. CONCLUSIONS Indication for the procedure: Recurrent palpitations Normal LV size and function No structural valvular abnormalities Previewed by: Dr. Azael Candelaria MD (Electronically Signed) Final Date: 25 February 2025 11:56
== END | disposition home or self-care (01) ==
LOC: RADECHMAIN 15:58
PROVIDERS: ATTEND Internal Medicine Geriatric Medicine
DX: R00.2 Palpitations (principal)
CPT/HCPCS: 93306

== ENCOUNTER 2025-04-15 14:12 | Emergency (ER) | payer MEDICARE ==
[2025-04-15 14:19] VITALS: TEMP 97.4
--- NOTE | 2025-04-15 15:25 | ED ---
Allergic Reaction HPI - General Chief complaint: Allergic Reaction Stated complaint: throat swelling Time Seen by Provider: 04/15/25 15:05 Source: patient Mode of arrival: ambulatory Limitations: no limitations - History of Present Illness Initial Comments: This patient is a 64-year-old woman who presents with complaint that she believes she is having allergic reaction. She states she had gone to a work meeting and there was a plug-in air freshener and after inhaling some of the air she started to experience feeling of tightness in her throat and a burning in her chest. She began having nonproductive cough. She was feeling short of breath so she proceeded to come here. The patient denies having rash, pruritus, nausea, vomiting, diarrhea. MD Complaint: allergic reaction Onset/Timin -: minutes(s) Exposure: other Symptoms: hoarseness Severity: mild Treatment Prior to Arrival: none Previous Allergy History: none - Related Data Previous Rx's Medication Instructions Recorded Famotidine [Pepcid] 20 mg PO BID #10 tablet 04/15/25 diphenhydrAMINE [Benadryl] 50 mg PO QID PRN #24 capsule 04/15/25 Allergies Allergy/AdvReac Type Severity Reaction Status Date / Time codeine AdvReac Nausea-dizz Verified 04/15/25 14:19 [From Tylenol-Codeine #3] iness Review of Systems ROS Statement: Those systems with pertinent positive or pertinent negative responses have been documented in the HPI. ROS Other: All systems not noted in ROS Statement are negative. Constitutional: Denies: fever, chills ENT: Reports: throat pain Respiratory: Reports: cough, dyspnea. Denies: wheezes, hemoptysis, stridor Cardiovascular: Reports: chest pain. Denies: palpitations, edema, syncope Gastrointestinal: Denies: abdominal pain, nausea, vomiting, diarrhea Genitourinary: Denies: dysuria, hematuria Musculoskeletal: Denies: back pain Skin: Denies: rash Neurological: Denies: headache Past Medical History Past Medical History: Hearing Disorder / Deafness Additional Past Medical History / Comment(s): PALPITATIONS, covid 09/22/22 History of Any Multi-Drug Resistant Organisms: None Reported Past Surgical History: Hernia Repair, Hysterectomy Additional Past Surgical History / Comment(s): D & C, RT BREAST BX -NEG, UMB HERNIA Past Anesthesia/Blood Transfusion Reactions: Previous Problems w/ Anesthesia Additional Past Anesthesia/Blood Transfusion Reaction / Comment(s): DIFFICULTY WAKING. no blood transfusions Past Psychological History: No Psychological Hx Reported Smoking Status: Never smoker Past Alcohol Use History: Occasional Past Drug Use History: None Reported - Past Family History Mother Family Medical History: Dementia Father Family Medical History: Congestive Heart Failure (CHF), Diabetes Mellitus General Exam Limitations: no limitations General appearance: alert, in no apparent distress Head exam: Present: atraumatic, normocephalic Eye exam: Present: normal appearance. Absent: scleral icterus, conjunctival injection ENT exam: Present: normal oropharynx Neck exam: Present: normal inspection Respiratory exam: Present: normal lung sounds bilaterally. Absent: respiratory distress, wheezes, rales, rhonchi, stridor, accessory muscle use Cardiovascular Exam: Present: regular rate, normal rhythm, normal heart sounds. Absent: systolic murmur, diastolic murmur, rubs, gallop GI/Abdominal exam: Present: soft. Absent: distended, tenderness, guarding, rebound, rigid, mass Extremities exam: Present: normal inspection, normal capillary refill. Absent: pedal edema, calf tenderness Neurological exam: Present: alert Skin exam: Present: warm, dry, intact, normal color. Absent: rash Course Vital Signs 04/15/25 04/15/25 14:15 17:04 Temperature 97.4 F L Pulse Rate 65 63 Respiratory 17 18 Rate Blood Pressure 173/90 164/90 O2 Sat by Pulse 97 98 Oximetry Medical Decision Making - Medical Decision Making Was pt. sent in by a medical professional or institution (, PA, MECHANICAL FACILITIES TECHNICIAN, urgent care, hospital, or senior living...) When possible be specific @ -[No] Did you speak to anyone other than the patient for history (EMS, parent, family, police, friend...)? What history was obtained from this source @ -[No] Did you review nursing and triage notes (agree or disagree)? Why? @ -[I reviewed and agree with nursing and triage notes] Were old charts reviewed (outside hosp., previous admission, EMS record, old EKG, old radiological studies, urgent care reports/EKG's, senior living records)? Report findings @ -[No old charts were reviewed] Differential Diagnosis (chest pain, altered mental status, abdominal pain women, abdominal pain men, vaginal bleeding, weakness, fever, dyspnea, syncope, headache, dizziness, GI bleed, back pain, seizure, CVA, palpatations, mental health, musculoskeletal)? @ -[Differential Dyspnea: Coronary syndrome, arrhythmia, tamponade, asthma, COPD, pulmonary embolism, pneumonia, pneumothorax, pulmonary effusion, anaphylaxis, diabetic ketoacidosis, flailed chest, pulmonary contusion, diaphragmatic rupture, anemia, neuromuscular, this is not meant to be an all-inclusive list. EKG interpreted by me (3pts min.). @ -[As above] X-rays interpreted by me (1pt min.). @ -[None done] CT interpreted by me (1pt min.). @ -[None done] U/S interpreted by me (1pt. min.). @ -[None done] What testing was considered but not performed or refused? (CT, X-rays, U/S, labs)? Why? @ -[None] What meds were considered but not given or refused? Why? @ -[None] Did you discuss the management of the patient with other professionals (professionals i.e. , PA, MECHANICAL FACILITIES TECHNICIAN, lab, RT, psych nurse, social research assistant, school photographs detailer, teacher, tank officer, caseworker protective services)? Give summary @ -[No] Was smoking cessation discussed for >3mins.? @ -[No] Was critical care preformed (if so, how long)? @ -[No] Were there social determinants of health that impacted care today? How? (Homelessness, low income, unemployed, alcoholism, drug addiction, transportation, low edu. Level, literacy, decrease access to med. care, usp, rehab)? @ -[No] Was there de-escalation of care discussed even if they declined (Discuss DNR or withdrawal of care, Hospice)? DNR status @ -[No] What co-morbidities impacted this encounter? (DM, HTN, Smoking, COPD, CAD, Cancer, CVA, ARF, Chemo, Hep., AIDS, mental health diagnosis, sleep apnea, morbid obesity)? @ -[None] Was patient admitted / discharged? Hospital course, mention meds given and route, prescriptions, significant lab abnormalities, going to OR and other pertinent info. @ -[Patient is 64-year-old woman here with complaint of tight feeling in the throat after being exposed to air freshener at work. The patient not manifesting any acute distress. There is no stridor. The patient given medication for symptomatic treatment and is observed. She then was feeling well and wanted to go home. Discussed appropriate further care and follow-up as well as return parameters. Undiagnosed new problem with uncertain prognosis? @ -[No] Drug Therapy requiring intensive monitoring for toxicity (Heparin, Nitro, Insulin, Cardizem)? @ -[No] Were any procedures done? @ -[No] Diagnosis/symptom? @ -[Acute allergic reaction Acute, or Chronic, or Acute on Chronic? @ -[Acute Uncomplicated (without systemic symptoms) or Complicated (systemic symptoms)? @ -[Uncomplicated Side effects of treatment? @ -[No] Exacerbation, Progression, or Severe Exacerbation? @ -[No] Poses a threat to life or bodily function? How? (Chest pain, [place], [place], pneumonia, PE, COPD, DKA, ARF, appy, cholecystitis, CVA, Diverticulitis, Homicidal, Suicidal, threat to staff... and all critical care pts) @ -[No] All treatments are based on ideal body weight as in ED triage Disposition Clinical Impression: Allergic reaction Disposition: HOME SELF-CARE Condition: Good Instructions (If sedation given, give patient instructions): General Allergic Reaction (ED) Prescriptions: diphenhydrAMINE [Benadryl] 50 mg PO QID PRN #24 capsule PRN Reason: Allergic Reaction Famotidine [Pepcid] 20 mg PO BID #10 tablet Is patient prescribed a controlled substance at d/c from ED?: No Referrals: Geno No MD [Primary Care Provider] - 1-2 days
[2025-04-15] MEDS: methylPREDNISolone SOD SUCCI 125 MG/2 ML VIAL IV STA (15:31)
[2025-04-15] MEDS: FAMOTIDINE 20 MG/2 ML VIAL IV STA (15:32)
[2025-04-15] MEDS: diphenhydrAMINE 50 MG/ML 1 ML VIAL IVP STA (15:32)
[2025-04-15 17:06] VITALS: BP 164/90; PULSE 63; RESP 18
== END 2025-04-15 17:05 | disposition home or self-care (01) ==
LOC: EC 14:12
DX: T78.49XA Other allergy, initial encounter (principal); Z88.5 Allergy status to narcotic agent
CPT/HCPCS: 99283; 96374; 96375 ×2; J1200; J2919; J1308

== ENCOUNTER 2025-05-22 13:56 | Emergency (ER) | payer MEDICARE ==
[2025-05-22 14:09] VITALS: BP 125/68; PULSE 56; RESP 18; TEMP 98.3
--- NOTE | 2025-05-22 14:47 | ED ---
Fall HPI - General Chief Complaint: Fall Stated Complaint: Fall Time Seen by Provider: 05/22/25 14:46 Source: patient, family, RN notes reviewed Mode of arrival: ambulatory Limitations: no limitations - History of Present Illness Initial Comments: 64 old female presented the ER for evaluation of fall. Patient states she was at [employer] this morning and accidentally tripped causing her to fall on her right side. Patient admits to hitting the side of her head. She denies loss of consciousness or blood thinner use. Patient states bystanders immediately ran over to help her get up. After [employer] service patient went out to lunch and had continued pain which prompted her to be evaluated at urgent care. Urgent care stated patient needed to come to the emergency department for further evaluation. Patient is currently complaining of right-sided head pain, right shoulder pain, right hip and right knee pain. She denies any paresthesias to bilateral upper or lower extremities. She has not taken anything for pain at this time. She denies any dizziness, lightheadedness, nausea, vomiting or syncope since incident. No other complaints. - Related Data Previous Rx's Medication Instructions Recorded Famotidine [Pepcid] 20 mg PO BID #10 tablet 04/15/25 diphenhydrAMINE [Benadryl] 50 mg PO QID PRN #24 capsule 04/15/25 Allergies Allergy/AdvReac Type Severity Reaction Status Date / Time codeine AdvReac Nausea-dizz Verified 05/22/25 14:09 [From Tylenol-Codeine #3] iness Review of Systems ROS Statement: Those systems with pertinent positive or pertinent negative responses have been documented in the HPI. ROS Other: All systems not noted in ROS Statement are negative. Past Medical History Past Medical History: Hearing Disorder / Deafness Additional Past Medical History / Comment(s): PALPITATIONS, covid 09/22/22 History of Any Multi-Drug Resistant Organisms: None Reported Past Surgical History: Hernia Repair, Hysterectomy Additional Past Surgical History / Comment(s): D & C, RT BREAST BX -NEG, UMB HERNIA Past Anesthesia/Blood Transfusion Reactions: Previous Problems w/ Anesthesia Additional Past Anesthesia/Blood Transfusion Reaction / Comment(s): DIFFICULTY WAKING. no blood transfusions Past Psychological History: No Psychological Hx Reported Smoking Status: Never smoker Past Alcohol Use History: Occasional Past Drug Use History: None Reported - Past Family History Mother Family Medical History: Dementia Father Family Medical History: Congestive Heart Failure (CHF), Diabetes Mellitus General Exam Limitations: no limitations General appearance: alert, in no apparent distress Head exam: Present: atraumatic, normocephalic, normal inspection Eye exam: Present: normal appearance, PERRL, EOMI. Absent: scleral icterus, conjunctival injection, periorbital swelling Pupils: Present: normal accommodation ENT exam: Present: normal exam, normal oropharynx, mucous membranes moist, other (No raccoon eyes or Lima sign) Neck exam: Present: normal inspection. Absent: tenderness, meningismus, lymphadenopathy Respiratory exam: Present: normal lung sounds bilaterally. Absent: respiratory distress, wheezes, rales, rhonchi, stridor Cardiovascular Exam: Present: regular rate, normal rhythm, normal heart sounds. Absent: systolic murmur, diastolic murmur, rubs, gallop, clicks GI/Abdominal exam: Present: soft, normal bowel sounds. Absent: distended, tenderness, guarding, rebound, rigid Extremities exam: Present: tenderness (Right proximal humerus, right lateral epicondyle. No right anatomical snuffbox tenderness. Right greater trochanter. Right straight leg roll negative.), normal capillary refill (2+ bilateral radial and DP pulses.) Back exam: Present: normal inspection Neurological exam: Present: alert, oriented X3, CN II-XII intact Skin exam: Present: warm, dry, intact, normal color, abrasion (Right knee) Course Vital Signs 05/22/25 14:05 Temperature 98.3 F Pulse Rate 56 L Respiratory 18 Rate Blood Pressure 125/68 O2 Sat by Pulse 95 Oximetry Medical Decision Making - Medical Decision Making Was pt. sent in by a medical professional or institution (, PA, RAGMAN, urgent care, hospital, or alf...) When possible be specific @ -No Did you speak to anyone other than the patient for history (EMS, parent, family, police, friend...)? What history was obtained from this source @ -[Significant other, bedside, aiding in HPI past medical history. Did you review nursing and triage notes (agree or disagree)? Why? @ -I reviewed and agree with nursing and triage notes Were old charts reviewed (outside hosp., previous admission, EMS record, old EKG, old radiological studies, urgent care reports/EKG's, alf records)? Report findings @ -No old charts were reviewed Differential Diagnosis (chest pain, altered mental status, abdominal pain women, abdominal pain men, vaginal bleeding, weakness, fever, dyspnea, syncope, headache, dizziness, GI bleed, back pain, seizure, CVA, palpatations, mental health, musculoskeletal)? @ -[Fracture, dislocation, contusion, hematoma, intracranial hemorrhage, concussion, abrasion, laceration this list does not like to be all-inclusive EKG interpreted by me (3pts min.). @ -None X-rays interpreted by me (1pt min.). @ -[Right hip AP pelvis x-ray, right shoulder, right shoulder, right forearm and right hand x-ray interpreted by me negative for acute fractures or dislocations CT interpreted by me (1pt min.). @ -CT brain negative for acute intracranial process U/S interpreted by me (1pt. min.). @ -[None done What testing was considered but not performed or refused? (CT, X-rays, U/S, labs)? Why? @ -None What meds were considered but not given or refused? Why? @ -None Did you discuss the management of the patient with other professionals (professionals i.e. , PA, RAGMAN, lab, RT, psych nurse, social media job titles, chief lending officer, teacher, ict customer support officer, telephonic case manager)? Give summary @ -No Was smoking cessation discussed for >3mins.? @ -No Was critical care preformed (if so, how long)? @ -No Were there social determinants of health that impacted care today? How? (Homelessness, low income, unemployed, alcoholism, drug addiction, transportation, low edu. Level, literacy, decrease access to med. care, halfway, rehab)? @ -No Was there de-escalation of care discussed even if they declined (Discuss DNR or withdrawal of care, Hospice)? DNR status @ -No What co-morbidities impacted this encounter? (DM, HTN, Smoking, COPD, CAD, Cancer, CVA, ARF, Chemo, Hep., AIDS, mental health diagnosis, sleep apnea, morbid obesity)? @ -None Was patient admitted / discharged? Hospital course, mention meds given and route, prescriptions, significant lab abnormalities, going to OR and other pertinent info. @ -[Discharge. 64-year-old male presented the ER for evaluation of trip and fall. Vital signs stable. Patient is neurovascularly intact. Imaging completed in the ER negative for acute process. Patient provided with Tylenol a nd ibuprofen for pain control. Upon reevaluation, patient resting comfortably in stretcher no signs of acute distress. Patient reporting improvement of pain. Patient observed ambulating in emergency department without difficulty. Patient is comfortable and agreeable with discharge at this time. Return parameters discussed. Conservative treatment options discussed. Advise close follow-up with PCP. Patient verbally expressed understanding agree with care plan. Case discussed with ED attending of Dr. Sullivan. Undiagnosed new problem with uncertain prognosis? @ -No Drug Therapy requiring intensive monitoring for toxicity (Heparin, Nitro, Insulin, Cardizem)? @ -No Were any procedures done? @ -No Diagnosis/symptom? @ -Fall Acute, or Chronic, or Acute on Chronic? @ -Acute Uncomplicated (without systemic symptoms) or Complicated (systemic symptoms)? @ -Uncomplicated Side effects of treatment? @ -No Exacerbation, Progression, or Severe Exacerbation? @ -No Poses a threat to life or bodily function? How? (Chest pain, USA, NH, pneumonia, PE, COPD, DKA, ARF, appy, cholecystitis, CVA, Diverticulitis, Homicidal, Suicidal, threat to staff... and all critical care pts) @ -No - Radiology Data Radiology results: report reviewed, image reviewed Disposition Clinical Impression: Fall Disposition: HOME SELF-CARE Condition: Stable Instructions (If sedation given, give patient instructions): Fall Prevention for Older Adults (ED) Additional Instructions: You may take [id number] ibuprofen and Tylenol for pain control. Continue to rest ice and elevate. Return to the ER for any new or worsening concerns. Is patient prescribed a controlled substance at d/c from ED?: No Referrals: Geno No MD [Primary Care Provider] - 1-2 days Time of Disposition: 16:01
--- NOTE | 2025-05-22 15:41 | XR ---
EXAMINATION TYPE: XR knee complete RT DATE OF EXAM: 05/22/2025 3:28 PM INDICATION: Patient age:Female; 64 years old; Reason for study: fall; PHH. pain COMPARISON: None. TECHNIQUE: The Right knee(s) was examined in Frontal, lateral and oblique projections. FINDINGS: No evidence of any acute osseous pathology, soft tissue swelling, or joint effusion is no neville. Small suprapatellar spurring. IMPRESSION: No acute osseous pathology. [facility], , 05/22/2025 3:38 PM
[2025-05-22] MEDS: ACETAMINOPHEN TAB 325 MG TAB PO STA (15:43)
--- NOTE | 2025-05-22 15:45 | CT ---
EXAMINATION TYPE: CT brain wo con CT DLP: 1117.4 mGycm, Automated exposure control for dose reduction was used. DATE OF EXAM: 05/22/2025 3:31 PM COMPARISON: CT brain 02/07/2023, MRI brain 05/02/2023, CT brain C-spine 01/20/2023 CLINICAL INDICATION:Female, 64 years old with history of fall with head injury, fall with head injury , pain TECHNIQUE: Brain: Multiple axial CT images of the brain were obtained without IV contrast. . Coronal and sagitta l reformats reviewed. FINDINGS: Brain: Extra-axial spaces: No abnormal extra-axial fluid collections. Ventricular system: Within normal limits Cerebral parenchyma: No acute intraparenchymal hemorrhage or mass effect. The salmeron-white junction is well differentiated. Scattered hypoattenuating areas are seen within the periventricular white matte r. Partial empty sella morphology. Cerebellum: Similar cerebellar tonsils extension approximately 5 mm below the foramen magnum. Mass effect: No evidence of midline shift. Intracranial vasculature: Atherosclerotic calcifications of the intracranial vessels. Soft tissues: Normal. Calvarium/osseous structures: No depressed skull fracture. Paranasal sinuses and mastoid air cells: Clear, aplasia of the right frontal sinus. Visualized orbits: Orbital contents are intact. IMPRESSION: 1. No acute intracranial process. 2. Nonspecific white matter changes, likely secondary to chronic small vessel ischemic disease. 3. Similar cerebellar tonsillar ectopia. [facility], , 05/22/2025 3:42 PM
--- NOTE | 2025-05-22 15:45 | XR ---
EXAMINATION TYPE: XR Hip RT and AP Pelvis DATE OF EXAM: 05/22/2025 3:27 PM INDICATION: Patient age:Female; 64 years old; Reason for study: fall; PHH. pain COMPARISON: Left hip radiograph 01/20/2023 TECHNIQUE: The right hip was examined in the frontal and lateral projections and a AP pelvis. FINDINGS: No evidence of any acute osseous pathology, joint dislocation, or soft tissue swelling. IMPRESSION: No acute osseous pathology. [facility], , 05/22/2025 3:43 PM
--- NOTE | 2025-05-22 15:46 | XR ---
EXAMINATION TYPE: XR shoulder complete RT DATE OF EXAM: 05/22/2025 3:35 PM INDICATION: Patient age:Female; 64 years old; Reason for study: fall; pain COMPARISON: None TECHNIQUE: The right shoulder was examined in AP, internally rotated and scapular Y projections. . FINDINGS: No evidence of acute osseous pathology, joint dislocation, or soft tissue swelling. The remaining por tions of the visualized chest are unremarkable. IMPRESSION: No acute osseous pathology. [facility], , 05/22/2025 3:44 PM
--- NOTE | 2025-05-22 15:47 | XR ---
EXAMINATION TYPE: XR forearm RT DATE OF EXAM: 05/22/2025 3:38 PM INDICATION: Patient age:Female; 64 years old; Reason for study: fall; PHH. pain COMPARISON: Right hand radiograph the same date TECHNIQUE: The right forearm was examined in AP and lateral projections. FINDINGS: No acute osseous pathology, soft tissue swelling or joint dislocations are seen. IMPRESSION: No evidence of acute fracture. [facility], , 05/22/2025 3:44 PM
--- NOTE | 2025-05-22 15:47 | XR ---
EXAMINATION TYPE: XR hand complete RT DATE OF EXAM: 05/22/2025 3:42 PM INDICATION: Patient age:Female; 64 years old; Reason for study: fall; PHH. pain COMPARISON: Right forearm radiograph the same date TECHNIQUE: Frontal, lateral and oblique views of the right hand were obtained. FINDINGS: Normal alignment of the visualized joints. No acute osseous pathology is identified. No e vidence of soft tissue swelling. IMPRESSION: No acute osseous pathology. [facility], , 05/22/2025 3:45 PM
[2025-05-22] MEDS: IBUPROFEN 600 MG TAB PO STA (16:30)
== END 2025-05-22 16:34 | disposition home or self-care (01) ==
LOC: EC 13:56
DX: M25.511 Pain in right shoulder (principal); Z88.5 Allergy status to narcotic agent; W19.XXXA Unspecified fall, initial encounter
CPT/HCPCS: 70450; 73502; 99284